=== PATIENT | male | born 1975 | race Caucasian/White ===

== ENCOUNTER 2022-07-19 14:00 | Emergency (ER) | payer BC, SELFPAY ==
--- NOTE | 2022-07-19 14:00 | RT.EKG_ITS ---
APPROVED REPORT Exam: Resting ECG Reason for Exam: CP Patient Location: E HR:65 bpm ECG Measurements Heart Rate 65 AXIS TN 171 P 48 QRSd 102 QRS -2 QT 406 T 24 QTc 421 Conclusion Sinus rhythm...normal P axis, V-rate 60- 99. Sinus. Normal axis. No STEMI. I have reviewed and interpreted ECG and agree with software generated interpretation.
--- NOTE | 2022-07-19 14:00 | DI.RAD_ITS ---
Exam(s) XR CHEST 2V PA LATERAL EXAM: XR CHEST 2V PA LATERAL CLINICAL HISTORY: CP TECHNIQUE: 2D digital imaging was performed. COMPARISON: No exams were available for comparison FINDINGS: HEART: Normal size. Aorta: Not dilated. PULMONARY VASCULATURE: Normal. LUNGS: Clear. PLEURAL SPACE: No pleural effusion or pneumothorax. BONE:Unremarkable for age. IMPRESSION: No acute abnormality. DATA REPOSITORY: RADIATION DOSE DELIVERED:
[2022-07-19 14:04] VITALS: BP 149/94; PULSE 67; RESP 20; TEMP 35.9; O2SAT 97
--- NOTE | 2022-07-19 14:12 | W.ED.GENAD ---
Discharge Plan Disposition Patient Disposition: Home Condition: Good Discharge Details Clinical Impression: Chest pain, Muscle strain ED Provider: Xiomara aMckenzie Home Meds and New Rx's Prescriptions: No Action No Known Home Meds Discharge Instructions Instructions: Chest Pain (ED), Muscle Strain (ED) Additional Instructions: Your labs and imaging are reassuring here today. The positional nature of your discomfort as well as the fact that your pain is worse with movement of the left arm after moving rocks is most concerning for muscular strain. Please encourage hydration. He may use Tylenol and ibuprofen as needed for discomfort. As we discussed, you may also try topical options such as IcyHot or Bengay to help with discomfort. Heat or ice may also be of benefit. If you develop pain with exertion, shortness of breath, fever/chills or other new/worsening symptoms please seek care urgently once again. Otherwise, please follow-up with primary care in 2 weeks for reevaluation. Referrals: Avelina Orona [ [facility] STAFF PHYSICIAN] - Discharge Data Discharge Date/Time-TO BE ENTERED AT DEPARTURE: 07/19/22 16:10 Medical Decision Making Patient is a pleasant 46-year-old male without significant past medical history presenting today, companied by his , with chief complaint of chest pain that began yesterday. States that pain is worse with certain movements, particular leaning forward, bringing his left arm across his chest or rolling over in bed. He states that today he was up and down stairs throughout the course of the day and did not have any pain when exerting himself in this manner. However, he states that when he rolled over at night the pain would wake him up from sleep. He has not had pain like this historically. He denies any chest trauma. Denies any shortness of breath. Pain is not exacerbated with deep inspiration or coughing. He does report that 2 days ago he was lifting rocks in his garden. Patient does not smoke any nicotine but does smoke marijuana frequently and drinks alcohol daily. He has not had any recent travel. No prolonged times of being sedentary is atypical for the patient. He denies any personal family history of cardiac disease or clots. On exam, patient appears nontoxic. His lungs are clear, normal cardiac exam. Pain is reproducible with having him no pain with palpation over the anterior aspect of the chest. No rubs appreciated, particular when leaning forward. Across his left arm across his chest. When evaluating him, he did not have any pain except for when he was crossing his arm across his chest. Abdomen is benign. No CVA tenderness. No lower extremity edema or calf tenderness. Patient exam is most consistent with muscle strain. However, patient is overweight, smokes regularly, drinks alcohol certainly has risk factors for ACS. I do feel that evaluation with troponin, EKG chest x-ray would be appropriate. His history exam is not consistent with pericarditis, infectious etiology such as endocarditis, pneumonia, pulmonary embolism, dissection. ECG was obtained and no acute ischemic abnormalities were appreciated by Dr. Lujan. HEART: Normal size.? Aorta: Not dilated. PULMONARY VASCULATURE: Normal. LUNGS: Clear. ? PLEURAL SPACE: No pleural effusion or pneumothorax. BONE:Unremarkable for age.? IMPRESSION: No acute abnormality.? No labs reviewed. No leukocytosis. Hemoglobin is slightly low at 13. CMP within normal limits. Troponin within normal limits. Given the length of time its been ongoing I do not feel that repeat troponin is warranted at this time. Again, his history and exam is much more consistent with muscular strain rather than acute ACS, pericarditis, PE, dissection or other emergent pathology. I advised anti-inflammatories and acetaminophen to help with discomfort. Advised topical options such as heat or ice. Encouraged gentle stretching. Advise close follow-up with primary care. Return precautions were discussed. All his questions and concerns were addressed and he is in agreement this plan. HPI General Date/Time Provider Initiated Documentation: 07/19/22 14:12. Limitations to Documentation: no limitations. Information obtained by: patient, family and RN notes reviewed. History of Present Illness 46 year old M presents to the emergency department with the chief complaint of chest pain, described as mild, Quality is described as aching, and is localized to the chest. Patient reports no radiation. Patient started experiencing this day(s) and it has been intermittent. Immobilization improves symptom(s), Movement worsens symptoms (positionally dependent) . Patient notes no other symptoms.. Patient did receive the following treatments prior to arrival, none Related Data Home Medications Medication Instructions Recorded Confirmed Unknown [No Known Home Meds] 07/19/22 07/19/22 Allergies Allergy/AdvReac Type Severity Reaction Status Date / Time cephalexin AdvReac Intermediate Skin Rash Unverified 07/19/22 14:08 General Stated Complaint: Chest Pain CANDICE: 3 Review of Systems Constitutional Constitutional: Reports as per HPI, Denies chills, Denies fever(s), Denies headache(s), Denies lethargy and Denies poor appetite ENT Ears, Nose, Mouth, and Throat: Denies dizziness and Denies headache(s) Cardiovascular Cardiovascular: Reports as per HPI, Denies dyspnea and Denies dyspnea on exertion Respiratory Respiratory: Reports as per HPI, Denies chest congestion, Denies cough, Denies dyspnea and Denies dyspnea on exertion Gastrointestinal Gastrointestinal: Reports as per HPI, Denies abdominal pain, Denies diarrhea, Denies nausea and Denies vomiting Musculoskeletal Musculoskeletal: Reports as per HPI and Denies back pain Integumentary/Breasts Skin/Breast: Reports as per HPI and Denies rash Neurologic Neurologic: Reports as per HPI, Denies dizziness and Denies headache(s) PFSH All Active Problems (Updated 07/19/22 @ 16:03 by CAMILA Merlos) Chest pain (Acute) Muscle strain (Acute) Social History Smoking/Tobacco Use Status: Former Tobacco Use Smoking risk assessment performed?: Yes Alcohol Intake: current Alcohol Intake frequency: 0-2 drinks per day Alcohol type: beer Drug use: Occasionally Substance use type: marijuana Details: weekly. Do you feel safe at home: Yes Do you feel safe in your relationship?: Yes Exam Const General: cooperative, healthy appearing, comfortable, no acute distress and well developed Nutritional Appearance: well nourished and overweight Orientation: alert, awake and oriented x3 HENMT Head: normal to inspection Ears: hearing grossly normal bilaterally Mouth: moist mucous membranes Chest Chest: normal inspection of the chest, normal palpation of entire chest wall, no crepitus and other (pain with movement of the LUE, particularly crossing over his chest) Resp Effort & Inspection: normal respiratory effort, able to speak in complete sentences and no respiratory distress Auscultation: clear to auscultation bilaterally, no rales, no rhonchi and no wheezes Cardio Rate: regular rate Rhythm: regular rhythm Heart Sounds: S1 normal and S2 normal GI Inspection: normal to inspection, no edema and non-distended Palpation: soft, no hepatosplenomegaly, not firm, no guarding, not rigid and nontender Auscultation: normal bowel sounds Back/Spine/Pelvis Back: no CVA tenderness Thoracic/Lumbar Spine: thoracic and lumbar spine normal to inspection Skin General skin exam: no rashes or lesions noted Trauma: no lacerations or abrasions Neuro General: patient alert, patient awake and patient oriented x3 Cognition: normal cognition Speech: speech normal Gait: normal gait Extrem General: normal to inspection, capillary refill normal, no pedal edema, no calf tenderness and normal gait Psych Appearance: grossly normal and well kempt Mental Status: mental status grossly normal Speech and Movement: speech and movement normal Course Vital Signs Vital signs: Vital Signs Temperature 35.9 C L 07/19/22 14:04 Pulse 67 07/19/22 14:04 Respiratory Rate 20 07/19/22 14:04 Blood Pressure 149/94 H 07/19/22 14:04 Pulse Oximetry 97 07/19/22 14:04 Temperature 35.9 C L 07/19/22 14:04 Temperature Source Tympanic 07/19/22 14:04 Pulse 67 07/19/22 14:04 Respiratory Rate 20 07/19/22 14:04 Respiratory Effort Normal, Non-Labored 07/19/22 14:08 Blood Pressure 149/94 H 07/19/22 14:04 Blood Pressure Position Sitting 07/19/22 14:04 Pulse Oximetry 97 07/19/22 14:04 Oxygen Delivery Method Room Air 07/19/22 14:04 Oxygen Flow Rate 0 07/19/22 14:04 Pain Level 0 07/19/22 14:04
[2022-07-19 14:33] LABS: Abs Immature Grans 0.01 10^3/uL (0.0-0.06); Absolute Basophil Count 0.03 10^3/uL (0.0-0.2); Absolute Eosinophil Count 0.19 10^3/uL (0.0-0.7); Absolute Lymphocyte Count 2.44 10^3/uL (1.2-3.4); Absolute Neutrophil Count 2.76 10^3/uL (1.2-6.7); Basophils % 0.5; Eosinophils % 3.3; Immature Grans % 0.2; Lymphocytes % 42.6; MCH 27.5 pg (27.0-33.0); MCHC 33.3 % (32.0-36.0); MCV 83 fL (80-95); MPV 10.2 fL (8.0-11.0); Monocytes % 5.2; Neutrophils % 48.2; Platelet Count 203 10^3/uL (130-400); RBC 4.72 10^6/uL (4.36-5.78); RDW-SD 42.5 fL; WBC 5.73 10^3/uL (4.4-10.8)
[2022-07-19 14:46] VITALS: RESP 16
[2022-07-19 14:50] LABS: ALT 39 U/L (16-63); AST 20 U/L (15-37); Albumin 3.6 g/dL (3.4-5.0); Alkaline Phosphatase 99 U/L (46-116); Anion Gap 7.9 mmol/L (3-11); BUN 12 mg/dL (7-18); Bilirubin, Total 0.3 mg/dL (0.2-1.0); CO2 26.1 mmol/L (21.0-32.0); Calcium 8.7 mg/dL (8.5-10.1); Chloride 106 mmol/L (98-107); Estimated GFR 92.84 (mL/min/1.73m2); Glucose 131 mg/dL (74-106); Magnesium 1.9 mg/dL (1.8-2.4); Potassium 3.5 mmol/L (3.5-5.1); Sodium 140 mmol/L (136-145); Total Protein 7.3 g/dL (6.4-8.2); Troponin I < 50 ng/L (<or=60)
== END 2022-07-19 16:10 | disposition home or self-care (01) ==
PROVIDERS: Emergency Provider Physician Assistant
DX: R07.9 Chest pain, unspecified (principal); S29.011A Strain of muscle and tendon of front wall of thorax, initial encounter; X50.0XXA Overexertion from strenuous movement or load, initial encounter
CPT/HCPCS: 36415; 80053; 93005; 99284; 71046; 83735; 84484; 85025; 93010; 99283

== ENCOUNTER 2022-10-05 10:48 | Outpatient (REF) | payer BC, SELFPAY ==
[2022-10-05 15:49] LABS: ALT 41 U/L (16-63); AST 22 U/L (15-37); Albumin 3.9 g/dL (3.4-5.0); Alkaline Phosphatase 98 U/L (46-116); Anion Gap 9.4 mmol/L (3-11); BUN 13 mg/dL (7-18); Bilirubin, Total 0.4 mg/dL (0.2-1.0); CO2 24.6 mmol/L (21.0-32.0); CREATININE 0.9 mg/dL (0.70-1.30); Calcium 9.1 mg/dL (8.5-10.1); Calculated LDL 147 mg/dL (<100); Chloride 105 mmol/L (98-107); Cholesterol 223 mg/dL (<200); Estimated GFR 105.35 (mL/min/1.73m2); Glucose 108 mg/dL (74-106); HDL Cholesterol 42 mg/dL (40-60); Potassium 4.6 mmol/L (3.5-5.1); Sodium 139 mmol/L (136-145); Total Protein 7.3 g/dL (6.4-8.2); Triglyceride 172 mg/dL (<150)
[2022-10-06 11:54] LABS: Hepatitis C Ab w Rflx HCV PCR Negative (Negative)
[2022-10-06 12:14] LABS: HIV-1/2 Ag & Ab Screen Negative (Negative)
== END 2022-10-05 10:49 | disposition home or self-care (01) ==
LOC: NCHCN 10:48
PROVIDERS: Visit Provider Nurse Practitioner Family
DX: E66.9 Obesity, unspecified (principal); Z13.220 Encounter for screening for lipoid disorders; Z11.4 Encounter for screening for human immunodeficiency virus [HIV]; Z11.59 Encounter for screening for other viral diseases
CPT/HCPCS: 80053; 80061; 86803; 87389

== ENCOUNTER 2023-06-23 10:28 | Day surgery (SDC) | payer BC, SELFPAY ==
--- NOTE | 2023-06-22 19:16 | PDOC.DSDIS_ITS ---
Date of service: 06/23/23 Time of Service: 12:21 Discharge Plan Disposition Patient Disposition: Home Condition: Good Discharge Details Reason For Visit: screening colonoscopy Attending Provider: Ari Daniel Primary Care Provider: Avelina Orona Home Meds and New Rx's Prescriptions: Discontinued bisacodyl [Dulcolax (bisacodyl)] 5 mg tablet,delayed release (DR/EC) 5 mg PO ONCE Qty: 4 0RF Rx Instructions: Colonoscopy Bowel Prep- Per Instructions polyethylene glycol 3350 17 gram/dose powder 238 g PO ONCE Qty: 238 0RF Rx Instructions: Colonoscopy Bowel Prep- Per Instructions Discharge Instructions Instructions: Diverticulosis (GEN), Diverticulosis Diet (GEN) Additional Instructions: Willi, we were able to complete your colonoscopy today without any difficulty. Your prep was excellent, and I could see everything just fine. I did not see any signs of tumors, polyps, or any other major worrisome issues. Incidentally, you do have a little bit of diverticulosis. Diverticula are small weak spots in the wall of the colon. They can get infected and inflamed. When that happens, patients typically have quite a bit of pain on the left side or lower portion of your abdomen with associated fevers and a general feeling of illness. During those times, patients are often treated with antibiotics. Hopefully, your diverticula never cause any issue. I did attach some general information here about typical approaches to diverticular disease treatment. In light of the fact that there are no polyps today, but based on your family history, I do recommend a 5-year screening interval moving forward. 1. If tolerated, consume a soft, low fiber diet for 1-2 days. 2[address] Do not drive, drink alcohol, operate machinery, make critical decisions, or do activities that require coordination or balance for 24 hours. 3. Because air was put into your colon during the procedure, expelling air from your rectum (passing gas or farting) is normal. 4. You may not have a bowel movement for 1-3 days because of the colonoscopy pr ep. This is normal. 5. Go directly to the emergency room if you notice any of the following: Develop chills (warm to touch), or if you have a thermometer and your temperature is above 101 Difficulty breathing or difficultly swallowing Persistent vomiting Severe abdominal pain, other than gas cramps Severe chest pain Black, tarry stools Any bleeding ? exceeding one tablespoon 6. Call your physician if the site where your intravenous was started becomes red, swollen, painful, and warm to touch. 7. Your physician has reviewed your pre-procedure medications. Please continue to take those medications as previously ordered. You will be given specific information/education regarding any changes to your medications before leaving. Activity:: Activity as Tolerated Diet:: As Tolerated Discharge Orders Discharge Orders: Discharge Order (Routine); Ordered 06/22/23 Ordered By: Ari Daniel DS: Diagnosis Discharge Diagnosis (1) Encounter for screening colonoscopy: Status: Acute Asessment and Plan: Negative screening colonoscopy. With family history, recommend 5-year screening interval
--- NOTE | 2023-06-22 19:18 | W.COLOREPORT ---
Date of service: 06/23/23 Time of Service: 12:23 Colonoscopy Report Date of procedure: 06/23/23 Pre-op diagnosis general: screening colonscopy Post-op diagnosis procedure note: other (Diverticulosis) Procedure: colonoscopy Surgeon: Ari Daniel Anesthesia Type: General:No Airway Estimated blood loss (mL): 0 Pathology: none sent Complications: None Disposition: same day Indications: Willi is a 47 year old man who needs a screening colonoscopy Prep: Miralax/Dulcolax Procedure Start Time: 12:02 Procedure End Time: 12:16 Findings: Sigmoid diverticulosis Procedure Description: After the induction of monitored anesthetic care, and with the patient in left lateral decubitus position, I began by performing an external anorectal exam.? Perineum and skin were normal, as was the anal verge.? There was no evidence of external hemorrhoids.? Next, I performed a digital rectal exam.? I did not appreciate any abnormal findings.? Next, I advanced a colonoscope into the rectal vault.? I performed retroflexion.? This appeared normal.? Using insufflation, I then advanced the colonoscope beyond the rectal folds and into the sigmoid colon before advancing towards the cecum.? There was some occasional diverticula within the sigmoid colon.? The scope was noted to be in the cecum by identification of the ileocecal valve and appendiceal orifice.? I then began withdrawing the colonoscope using repeated irrigation as necessary for full evaluation of the colonic mucosa. ?Once the scope was withdrawn to the level of the rectum, great care was taken to examine portions of the rectal folds.? Finally, the scope was withdrawn and the patient was brought to the same-day surgery recovery unit as the anesthetic wore off. ?The findings and instructions were shared with the patient prior to discharge. [place] Bowel Prep [place] Bowel Prep Right Colon: 3 Left Colon: 3 Transverse Colon: 3 Total Score: 9
--- NOTE | 2023-06-23 06:41 | W.ANESPRE ---
General Info Date of Service Date Performed: 06/23/23 Height: 5 ft 10 in Weight: 104.326 kg Body Mass Index (BMI): 33.0 Surgical Procedure: Operation Date: 06/23/23 12:05 Proposed Procedure Side Surgeon p Chap[place] Daniel MD Meds Allergies and Home Medications Allergies Allergy/AdvReac Type Severity Reaction Status Date / Time cephalexin AdvReac Intermediate Skin Rash Verified 06/23/23 10:54 Current Visit Medications: Current Medications Generic Name Dose Route Start Last Admin Trade Name Freq PRN Reason Stop Dose Admin Hyoscyamine Sulfate 0.125 mg 06/22/23 19:19 Hyoscyamine 0.125 Mg Sl/Oral/Chew SL 07/22/23 19:18 DIRECTED PRN Ringer's Solution 1,000 mls @ 80 mls/hr 06/23/23 06:00 IV 07/22/23 23:59 INFUSION CHAVO IV Miscellaneous Supplies 1 each 06/23/23 06:00 Iv Access IV 07/22/23 23:59 DIRECTED CHAVO Ondansetron HCl 4 mg 06/22/23 19:19 Ondansetron 4 Mg/2 Ml Vial IVP 07/22/23 19:18 Q4H PRN PRN Nausea / Vomiting Sodium Chloride 0 ml 06/23/23 06:00 Normal Saline Flush 10 Ml Syr IV 07/22/23 23:59 PRN PRN Sodium Chloride 0 ml 06/23/23 06:00 Normal Saline 10 Ml Vial IJ 07/22/23 23:59 DIRECTED PRN Sterile Water 0 ml 06/23/23 06:00 Water,Injection,Sterile 10 Ml Vial IJ 07/22/23 23:59 DIRECTED PRN PFSH Active Problems Active Problems: Problem Status Onset Code Encounter for screening colonoscopy Z12.11 Obesity E66.9 Surgical History Surgical History H/O wisdom tooth extraction 1994 Tobacco Smoking/Tobacco Use Status: Former Tobacco Use Alcohol Alcohol Intake: current Alcohol intake frequency: 0-2 drinks per day Alcohol type: beer and hard liquor Substance Use Substance use: Rarely Substance use type: marijuana Details: weekly. Vital Signs and Lab Results Vital Signs Most Recent Vital Signs in EMR: Temp Pulse Resp BP Pulse Ox 35.9 C L 69 16 124/88 98 06/23/23 10:54 06/23/23 10:54 06/23/23 10:54 06/23/23 10:54 06/23/23 10:54 Lab Results Blood Type / Crossmatch: No Data to Display Complete Blood Count: No Data to Display Complete Metabolic Panel: No Data to Display Liver Function Panel: No Data to Display Coagulation Panel: No Data to Display Cardiac Panel: No Data to Display Arterial Blood Gas: No Data to Display Venous Blood Gas: No Data to Display Pancreas Panel: No Data to Display Thyroid Panel: No Data to Display Infectious Disease: No Data to Display Blood Cultures: No Data to Display Toxicology Panel: No Data to Display Imaging and Studies Imaging and Studies Study information below may be from another EMR and interpreted by another provider. Please see original notes in EMR for more complete details. EKG Summary: 07/27: sinus Anesthesia Assessment and Plan Anesthesia History Personal History: No History of Anesthesia Complications Family History: No Family History of Anesthesia Complications Exercise Tolerance Exercise Tolerance: Metabolic Equivalents>4 Cardiac & Pulmonary Exam Cardiac Exam: Normal S1/S2 Heart Sounds Pulmonary Exam: Clear Bilateral Breath Sounds Implantable Cardiac Device Does patient have a Pacemaker or an ICD?: No Airway Exam Known Difficult Airway: No Mallampati Class: 4 Mouth Opening: Normal (> 3cm) Thyromental Distance: Greater than 3 cm Neck Range of Motion: Full ROM Neck Circumference: Normal Teeth Condition: Normal Dentition ASA Classification ASA Score: ASA 2 Emergency Case?: No NPO Status NPO Status: NPO Clears >2 hours, Solids >8 hours Anesthesia Plan Resuscitation Status: Full Code Anesthesia Technique: General Anesthesia Airway Planned: Natural Airway Monitors Used: Standard Monitors Preoperative Comments:: 47 yo male for colo. Sig PMHx: occ inhaler use with exercise, former smoker, occ Etoh/cannabis.
[2023-06-23 10:54] VITALS: BP 124/88; PULSE 69; RESP 16; TEMP 35.9; O2SAT 98
[2023-06-23] MEDS: Lactated Ringers 1,000 ML 80 ML IV (11:22)
[2023-06-23 11:23] VITALS: BMI 33.0
[2023-06-23 12:20] VITALS: BP 126/83; PULSE 83; RESP 16; TEMP 36.6; O2SAT 95
--- NOTE | 2023-06-23 12:53 | W.ANESPOSTOP ---
Postoperative Evaluation Date, Time and Location Date Performed: 06/23/23 Time Performed: 12:53 Patient Location: Day Surgery Unit Vital Signs Most Recent Imported Vital Signs: Most Recent Vital Signs Temp Pulse Resp BP Pulse Ox 36.6 C 83 16 126/83 95 06/23/23 12:20 06/23/23 12:20 06/23/23 12:20 06/23/23 12:20 06/23/23 12:20 Pain Score Most Recent Pain Score: Most Recent Pain Score Pain Level 0 06/23/23 12:20 Assessment Mental Status: Awake (Alert & Oriented to Patient Baseline) Airway and Respiratory Function: Patent airway with normal (patient baseline) respiratory exam Cardiovascular Function: Hemodynamically Stable Hydration Status: Adequately Hydrated Nausea & Vomiting: No Nausea or Vomiting Pain: Pt. Denies Any Pain Peripheral Nerve Block: Patient did not receive a nerve block
[2023-06-23 12:54] VITALS: BP 133/93; PULSE 74; RESP 16; TEMP 36.3; O2SAT 96
== END 2023-06-23 13:20 | disposition home or self-care (01) ==
LOC: SUR 10:29
PROVIDERS: PCP Nurse Practitioner Family; Visit Provider Surgery
PROC: 0DJD8ZZ Inspection of Lower Intestinal Tract, Via Natural or Artificial Opening Endoscopic (ICD-10-PCS; CPT 45378; principal; 2023-06-23 12:00)
DX: Z12.11 Encounter for screening for malignant neoplasm of colon (principal); K57.30 Diverticulosis of large intestine without perforation or abscess without bleeding; Z80.0 Family history of malignant neoplasm of digestive organs
CPT/HCPCS: 45378; J2001; J2704